=== PATIENT | male | born 1990 | race Caucasian/White ===

== ENCOUNTER 2019-02-10 20:07 | Emergency (ER) | payer SELFPAY ==
[2019-02-10] MEDS: FAMOTIDINE 20 MG TAB PO (22:27)
[2019-02-10] MEDS: ONDANSETRON (ODT) 4 MG TAB ODT (22:27)
[2019-02-10] MEDS: IBUPROFEN 800 MG TAB PO (22:27)
[2019-02-10] MEDS: DEXAMETHASONE 10 MG/ML 1 ML INJ IM (22:28)
== END 2019-02-10 22:59 | disposition home or self-care (01) ==
LOC: FTE 20:07
DX: B08.5 Enteroviral vesicular pharyngitis (principal)
CPT/HCPCS: 96372; 99284-25